=== PATIENT | female | born 1990 | race Caucasian/White ===

== ENCOUNTER 2022-03-10 20:35 | Emergency (ER) | payer SELFPAY ==
[~2022-03-10] VITALS: Ht 165.1 cm; Wt 66.2 kg
[2022-03-10 20:51] VITALS: BP 119/73
[2022-03-10] MEDS ORDERED: cefTRIAXone IM 500 MG VIAL. IM ONE (21:30)
[2022-03-10] MEDS ORDERED: metroNIDAZOLE 500 MG TABLET PO ONE (21:30)
[2022-03-10] MEDS ORDERED: DOXYCYCLINE HYCLATE 100 MG TABLET PO ONE (21:30)
[2022-03-10 21:42] LABS: BACTERIA,URINE MANY /HPF (0-FEW)
[2022-03-10] MEDS ORDERED: DOXY100T PO (21:47)
--- NOTE | 2022-03-10 21:47 | PHYS DOC ---
Past Medical History Past Surgical History: No Surgical History General Adult EDM: Chief Complaint: SEXUALLY TRANSMITTED DISEASE HPI: HPI: Patient is a 31 year old female with no significant medical history presented to the ED today requesting STD treatment. Patient states she has a new boyfriend who currently has STD symptoms. Patient has no symptoms but would like to be tested and treated. Review of Systems: Review of Systems: Constitutional: Denies fever or chills. [] GI: Denies abdominal pain, nausea, vomiting, bloody stools or diarrhea. [] : Request for STD treatment denies dysuria. [] Musculoskeletal: Denies back pain or joint pain. [] Integument: Denies rash. [] Neurologic: Denies headache, focal weakness or sensory changes. [] Psychiatric: Denies depression or anxiety. [] Heart Score: C/O Chest Pain: N/A Risk Factors: Risk Factors: DM, Current or recent (<one month) smoker, HTN, HLP, family histo ry of CAD, obesity. Risk Scores: Score 0 - 3: 2.5% MACE over next 6 weeks - Discharge Home Score 4 - 6: 20.3% MACE over next 6 weeks - Admit for Clinical Observation Score 7 - 10: 72.7% MACE over next 6 weeks - Early Invasive Strategies Current Medications: Current Medications Medications (Trade) Dose Ordered Sig/Randy Start Time Stop Time Status Last Admin Dose Admin Ceftriaxone Sodium (Rocephin Im) 500 mg 1X ONCE 03/10/22 21:30 03/10/22 21:31 DC 03/10/22 21:41 500 MG Doxycycline Hyclate (Vibra-Tab) 100 mg 1X ONCE 03/10/22 21:30 03/10/22 21:31 DC 03/10/22 21:41 100 MG Metronidazole (Flagyl) 2,000 mg 1X ONCE 03/10/22 21:30 03/10/22 21:31 DC 03/10/22 21:41 2,000 MG Allergies: Allergies: Allergies Coded Allergies Type Severity Reaction Last Updated Verified No Known Drug Allergies 03/10/22 No Physical Exam: PE: Constitutional: Well developed, well nourished, no acute distress, non-toxic appearance. [] Abdomen: Bowel sounds normal, soft, no tenderness, no masses, no pulsatile masses. [] Skin: Warm, dry, no erythema, no rash. [] Back: No tenderness, no CVA tenderness. [] Extremities: No tenderness, no cyanosis, no clubbing, ROM intact, no edema. [] Neurologic: Alert and oriented X 3, normal motor function, normal sensory function, no focal deficits noted. [] Psychologic: Affect normal, judgement normal, mood normal. [] Current Patient Data: Vital Signs: Vital Signs Date Time Temp Pulse Resp B/P (MAP) Pulse Ox O2 Delivery O2 Flow Rate FiO2 03/10/22 20:51 98.1 110 18 119/73 (88) 97 Room Air 98.1 EKG: EKG: [] Radiology/Procedures: Radiology/Procedures: [] Course & Med Decision Making: Course & Med Decision Making Pertinent Labs and Imaging studies reviewed. (See chart for details) This a 31-year-old female patient presenting to the ED today requesting STD treatment. Patient is asymptomatic. The boyfriend has STD symptoms. Negative urine hCG. Both patient and boyfriend were tested and treated. STD education provided, return precautions provided. Instructed to follow-up with the PCP or the health department for further STD concerns Dragon Disclaimer: Katey Disclaimer: This electronic medical record was generated, in whole or in part, using a voice recognition dictation system. Departure Departure Impression: Primary Impression: Concern about STD in female without diagnosis Disposition: 01 HOME / SELF CARE / HOMELESS Condition: STABLE Patient Instructions: Sexually Transmitted Disease Additional Instructions: You were tested and treated for sexually transmitted diseases. Please use protection at all times. Please do not have sex for 1 week. Please complete the prescribed antibiotics. Please let all your sex partners know you what treated for STDs and asked him to seek treatment. Scripts Doxycycline Hyclate (DOXYCYCLINE HYCLATE) 100 Mg Tablet 1 TAB PO BID, #14 TAB Prov: ALICE JORGENSEN [employer] 03/10/22 ALICE JORGENSEN [employer] March 10, 2022 21:47
[2022-03-12 17:10] LABS: GC PROBE Positive (Negative)
== END 2022-03-10 22:03 | disposition home or self-care (01) ==
LOC: ER 20:35
DX: Z20.2 Contact with and (suspected) exposure to infections with a predominantly sexual mode of transmission (principal)
CPT/HCPCS: 81001; 87077; 87086; 87186; 87491; 87591; 96372; 99283; J0696; Q0111